=== PATIENT | female | born 1990 ===

== ENCOUNTER → 2021-06-16 | Outpatient (CLI) | payer OTHER | LOC: LAB SHORT 16:00 | DX: R10.9 Unspecified abdominal pain (principal) | CPT/HCPCS: 87077; 87086; 87186 ==

== ENCOUNTER → 2022-05-06 | Outpatient (CLI) | payer OTHER | END | disposition home or self-care (01) | LOC: LAB 13:44 → LAB SHORT 13:44 | DX: N12 Tubulo-interstitial nephritis, not specified as acute or chronic (principal) | CPT/HCPCS: 87077; 87086; 87186 ==